=== PATIENT | male | born 1990 | race African-American/Black ===

== ENCOUNTER 2020-11-17 19:40 | Emergency (ER) | payer SELFPAY ==
[~2020-11-17] VITALS: Ht 175.3 cm; Wt 69.0 kg
[2020-11-17] MEDS ORDERED: HYDROCODONE/ACETAMINOPHEN 5/325MG TABLET PO ONE (20:45)
[2020-11-17] MEDS ORDERED: IBUPROFEN 600MG TABLET PO ONE (20:45)
[2020-11-17 21:11] VITALS: BP 126/77
[2020-11-17] MEDS ORDERED: IBUP-2029 MT (23:19)
== END 2020-11-17 23:27 | disposition home or self-care (01) ==
LOC: ER 19:40
DX: S82.145A Nondisplaced bicondylar fracture of left tibia, initial encounter for closed fracture (principal); W22.8XXA Striking against or struck by other objects, initial encounter; Y93.89 Activity, other specified; Y92.018 Other place in single-family (private) house as the place of occurrence of the external cause
CPT/HCPCS: 73564; 73700; 99284